=== PATIENT | female | born 1965 | race Caucasian/White ===

== ENCOUNTER 2017-11-26 04:14 | Emergency (ER) | payer MEDICAID ==
[2017-11-26 04:53] LABS: APPEARANCE CLEAR (CLEAR); BACTERIA FEW /hpf (NONE SEEN); BILIRUBIN NEGATIVE (NEGATIVE); COLOR YELLOW (YELLOW); EPITHELIAL CELLS 0-5 /hpf (0-5); GLUCOSE NEGATIVE (NEGATIVE); KETONE NEGATIVE (NEGATIVE); NITRITE NEGATIVE (NEGATIVE); PROTEIN TRACE mg/dL (NEGATIVE); UROBILINOGEN NORMAL (NORMAL)
[2017-11-26 05:04] LABS: BASOPHILS 0.1 % (0-2); EOSINOPHILS 1.5 % (0-7); HEMATOCRIT 32.2 % (36.0-48.0); HEMOGLOBIN 10.7 g/dL (12-16); IMMATURE GRANULOCYTES 0.3 % (0-5); LYMPHOCYTES 18.3 % (15-50); MCH 29.8 pg (26.0-34.0); MCHC 33.2 g/dL (31.0-37.0); MCV 89.7 fL (80.0-100.0); MEAN PLATELET VOLUME 8.7 fL (7.4-10.4); MONOCYTES 7.3 % (2-11); NEUTROPHILS 72.5 % (40-80); PLATELET COUNT 484 10x3/uL (130-400); RBC 3.59 10x6/uL (4.00-5.40); RDW 13.3 % (11.5-14.5); WBC 9.4 10x3/uL (4.8-10.8)
[2017-11-26 05:35] LABS: ALBUMIN 2.6 g/dL (3.4-5.0); ANION GAP 14.8 mmol/L (8-16); BILIRUBIN - TOTAL 0.1 mg/dL (0.2-1.3); CALCIUM 9.1 mg/dL (8.5-10.1); CARBON DIOXIDE 25.5 mmol/L (21.0-32.0); CREATININE - SERUM 0.9 mg/dL (0.6-1.3); POTASSIUM - SERUM 4.3 mmol/L (3.5-5.1)
== END 2017-11-26 06:15 | disposition home or self-care (01) ==
LOC: D.ER 04:14
PROVIDERS: Emergency Medicine
DX: R10.9 Unspecified abdominal pain (principal); F17.200 Nicotine dependence, unspecified, uncomplicated

== ENCOUNTER 2018-06-19 11:34 | Emergency (ER) | payer MEDICAID ==
[~2018-06-19] VITALS: Ht 162.6 cm; Wt 72.7 kg
[2018-06-19 11:48] VITALS: Ht 162.6 cm; Wt 72.7 kg
[2018-06-19] MEDS ORDERED: FORTAMET500 MG/BOT PO (11:51)
[2018-06-19 12:36] LABS: BASOPHILS 0.2 % (0-2); EOSINOPHILS 1.1 % (0-7); HEMOGLOBIN 15.9 g/dL (12-16); IMMATURE GRANULOCYTES 0.2 % (0-5); LYMPHOCYTES 26.1 % (15-50); MCH 30.4 pg (26.0-34.0); MCHC 33.8 g/dL (31.0-37.0); MCV 89.9 fL (80.0-100.0); MEAN PLATELET VOLUME 9.8 fL (7.4-10.4); MONOCYTES 6.8 % (2-11); NEUTROPHILS 65.6 % (40-80); RBC 5.23 10x6/uL (4.00-5.40); RDW 14.2 % (11.5-14.5); WBC 6.2 10x3/uL (4.8-10.8)
[2018-06-19 12:39] LABS: ALBUMIN 3.4 g/dL (3.4-5.0); ANION GAP 14.5 mmol/L (8-16); BILIRUBIN - TOTAL 0.33 mg/dL (0.2-1.3); CALCIUM 8.8 mg/dL (8.5-10.1); CARBON DIOXIDE 24.9 mmol/L (21.0-32.0); POTASSIUM - SERUM 4.4 mmol/L (3.5-5.1); PROTEIN - SERUM 7.8 g/dL (6.4-8.2)
[2018-06-19 12:42] LABS: PLATELET COUNT 272 10x3/uL (130-400)
[2018-06-19 12:56] LABS: APPEARANCE CLEAR (CLEAR); BILIRUBIN NEGATIVE (NEGATIVE); COLOR YELLOW (YELLOW); GLUCOSE 500 mg/dL (NEGATIVE); KETONE NEGATIVE (NEGATIVE); NITRITE NEGATIVE (NEGATIVE); PROTEIN TRACE mg/dL (NEGATIVE); SPECIFIC GRAVITY 1.025 (1.005-1.020); UROBILINOGEN NORMAL (NORMAL)
[2018-06-19 12:57] LABS: BACTERIA MODERATE /hpf (NONE SEEN); MUCUS >1+ /lpf (NONE SEEN); RED CELLS - URINE 0-5 /hpf (0-5); WHITE CELLS - URINE 0-5 /hpf (0-5)
[2018-06-19 14:41] VITALS: BP 137/86
== END 2018-06-19 14:35 | disposition home or self-care (01) ==
LOC: D.ER 11:34
PROVIDERS: Family Medicine
DX: M54.5 Low back pain (principal); E11.9 Type 2 diabetes mellitus without complications; J44.9 Chronic obstructive pulmonary disease, unspecified; F17.200 Nicotine dependence, unspecified, uncomplicated

== ENCOUNTER 2019-10-18 11:04 | Emergency (ER) | payer MEDICAID ==
[~2019-10-18] VITALS: Ht 162.6 cm; Wt 72.7 kg
[~2019-10-18 11:04] MED LIST: FORTAMET500 MG/BOT PO
[2019-10-18 11:06] VITALS: Ht 162.6 cm; Wt 72.7 kg
[2019-10-18] MEDS ORDERED: CYCLOBENZAPRINE5 MG PO (11:52)
[2019-10-18] MEDS ORDERED: DICLOFENAC SODI50 MG PO (11:52)
[2019-10-18 12:03] VITALS: BP 137/95
== END 2019-10-18 12:04 | disposition home or self-care (01) ==
LOC: D.ER 11:04
DX: M54.2 Cervicalgia (principal); J44.9 Chronic obstructive pulmonary disease, unspecified; Z72.0 Tobacco use; E11.9 Type 2 diabetes mellitus without complications; Z79.84 Long term (current) use of oral hypoglycemic drugs

== ENCOUNTER 2019-11-02 11:19 | Emergency (ER) | payer MEDICAID ==
[~2019-11-02] VITALS: Ht 162.6 cm; Wt 72.7 kg
[~2019-11-02 11:19] MED LIST changes: +CYCLOBENZAPRINE5 MG PO; +DICLOFENAC SODI50 MG PO
[2019-11-02 11:21] VITALS: Ht 162.6 cm; Wt 72.7 kg
[2019-11-02] MEDS ORDERED: VIBRAMYCIN 100100 MG PO (12:38)
[2019-11-02] MEDS ORDERED: TYLENOL W/CODEI1 TAB PO (12:38)
[2019-11-02] MEDS ORDERED: VOLTAREN75 MG PO (12:38)
[2019-11-02 12:49] VITALS: BP 148/86
== END 2019-11-02 12:50 | disposition home or self-care (01) ==
LOC: D.ER 11:19
DX: L02.212 Cutaneous abscess of back [any part, except buttock and flank] (principal); E11.9 Type 2 diabetes mellitus without complications; Z79.84 Long term (current) use of oral hypoglycemic drugs; J44.9 Chronic obstructive pulmonary disease, unspecified; Z72.0 Tobacco use

== ENCOUNTER 2019-11-24 13:31 | Emergency (ER) | payer MEDICAID ==
[~2019-11-24] VITALS: Ht 162.6 cm; Wt 72.7 kg
[~2019-11-24 13:31] MED LIST changes: +TYLENOL W/CODEI1 TAB PO; +VIBRAMYCIN 100100 MG PO; +VOLTAREN75 MG PO
[2019-11-24 14:07] VITALS: Ht 162.6 cm; Wt 72.7 kg
[2019-11-24] MEDS ORDERED: ALBUTEROL SULF8.5 GM INH (14:08)
[2019-11-24 14:42] LABS: BASOPHILS 0.2 % (0-2); EOSINOPHILS 2.5 % (0-7); HEMATOCRIT 45.4 % (36.0-48.0); HEMOGLOBIN 15.7 g/dL (12-16); IMMATURE GRANULOCYTES 0.3 % (0-5); LYMPHOCYTES 26.8 % (15-50); MCH 30.3 pg (26.0-34.0); MCHC 34.6 g/dL (31.0-37.0); MCV 87.5 fL (80.0-100.0); MONOCYTES 7.6 % (2-11); NEUTROPHILS 62.6 % (40-80); PLATELET COUNT 307 10x3/uL (130-400); RBC 5.19 10x6/uL (4.00-5.40); RDW 13.8 % (11.5-14.5); WBC 6.5 10x3/uL (4.8-10.8)
[2019-11-24 14:58] LABS: APTT 28.9 SECONDS (22.8-39.4); CALC OSMOLALITY 279 mosm/kg (275-300); CALCIUM 9.3 mg/dL (8.5-10.1); CARBON DIOXIDE 26.3 mmol/L (21.0-32.0); CHLORIDE - SERUM 102 mmol/L (98-107); CREATININE - SERUM 0.8 mg/dL (0.6-1.3); INR 0.86 (0.85-1.17); POTASSIUM - SERUM 3.8 mmol/L (3.5-5.1); PROTIME 11.7 SECONDS (11.6-15.0); SODIUM 138 mmol/L (136-145); UREA NITROGEN 13 mg/dL (7-18); eGFR NON AFRICAN AMERICAN 79 mL/min (90-120)
[2019-11-24 15:03] LABS: GLUCOSE 171 mg/dL (74-106)
[2019-11-24 15:14] LABS: ALBUMIN 3.7 g/dL (3.4-5.0); ALKALINE PHOSPHATASE 96 U/L (30-120); ALT (SGPT) 34 U/L (10-68); BILIRUBIN - TOTAL 0.23 mg/dL (0.2-1.3); CKMB 1.1 U/L (0.0-3.6); CREATINE KINASE 50 UL (21-215); PRO BNP 49 pg/mL (0-125); PROTEIN - SERUM 7.9 g/dL (6.4-8.2)
[2019-11-24 15:15] LABS: TROPONIN-I < 0.017 ng/mL (0.000-0.060)
[2019-11-24 16:01] VITALS: BP 126/71
== END 2019-11-24 16:01 | disposition home or self-care (01) ==
LOC: D.ER 13:31
PROVIDERS: Family Medicine
DX: R06.4 Hyperventilation (principal); J44.9 Chronic obstructive pulmonary disease, unspecified; E11.9 Type 2 diabetes mellitus without complications; Z72.0 Tobacco use; Z79.84 Long term (current) use of oral hypoglycemic drugs

== ENCOUNTER 2020-02-09 08:07 | Emergency (ER) | payer MEDICAID ==
[~2020-02-09] VITALS: Ht 162.6 cm; Wt 73.6 kg
[~2020-02-09 08:07] MED LIST changes: +ALBUTEROL SULF8.5 GM INH
[2020-02-09 08:10] VITALS: Ht 162.6 cm; Wt 73.6 kg
[2020-02-09 08:59] LABS: BACTERIA FEW /hpf (NEGATIVE); BILIRUBIN NEGATIVE (NEGATIVE); EPITHELIAL CELLS OCC /hpf (0-5); GLUCOSE NEGATIVE (NEGATIVE); KETONE NEGATIVE (NEGATIVE); NITRITE NEGATIVE (NEGATIVE); RED CELLS - URINE OCC /hpf (0-5); UROBILINOGEN NORMAL (NORMAL); WHITE CELLS - URINE RARE /hpf (NEGATIVE)
[2020-02-09 09:13] LABS: ANION GAP 11.5 mmol/L (8-16); CALCIUM 8.7 mg/dL (8.5-10.1); CARBON DIOXIDE 27.4 mmol/L (21.0-32.0); CREATININE - SERUM 0.9 mg/dL (0.6-1.3); POTASSIUM - SERUM 4.9 mmol/L (3.5-5.1)
[2020-02-09 09:16] LABS: ALBUMIN 3.3 g/dL (3.4-5.0); BILIRUBIN - TOTAL 0.39 mg/dL (0.2-1.3); PROTEIN - SERUM 7.4 g/dL (6.4-8.2)
[2020-02-09 10:00] VITALS: BP 121/77
[2020-02-09 10:03] LABS: BASOPHILS 0.1 % (0-2); EOSINOPHILS 1.4 % (0-7); HEMATOCRIT 47.1 % (36.0-48.0); IMMATURE GRANULOCYTES 0.2 % (0-5); LYMPHOCYTES 15.7 % (15-50); MCH 29.5 pg (26.0-34.0); MCHC 31.8 g/dL (31.0-37.0); MCV 92.5 fL (80.0-100.0); MEAN PLATELET VOLUME 9.5 fL (7.4-10.4); MONOCYTES 4.8 % (2-11); NEUTROPHILS 77.8 % (40-80); PLATELET COUNT 275 10x3/uL (130-400); RBC 5.09 10x6/uL (4.00-5.40); RDW 12.7 % (11.5-14.5); WBC 8.4 10x3/uL (4.8-10.8)
[2020-02-09] MEDS ORDERED: MACROBID100 MG PO (10:18)
== END 2020-02-09 10:52 | disposition home or self-care (01) ==
LOC: D.ER 08:07
PROVIDERS: Family Medicine
DX: N39.0 Urinary tract infection, site not specified (principal); R10.9 Unspecified abdominal pain; E11.9 Type 2 diabetes mellitus without complications; Z79.84 Long term (current) use of oral hypoglycemic drugs; J44.9 Chronic obstructive pulmonary disease, unspecified; R30.0 Dysuria

== ENCOUNTER 2020-06-12 13:50 | Emergency (ER) | payer MEDICAID ==
[~2020-06-12] VITALS: Ht 162.6 cm; Wt 72.7 kg
[~2020-06-12 13:50] MED LIST changes: +MACROBID100 MG PO
[2020-06-12 13:58] VITALS: Ht 162.6 cm; Wt 72.7 kg
[2020-06-12 14:47] LABS: BASOPHILS 0.1 % (0-2); EOSINOPHILS 0.8 % (0-7); HEMATOCRIT 46.6 % (36.0-48.0); HEMOGLOBIN 15.5 g/dL (12-16); IMMATURE GRANULOCYTES 0.2 % (0-5); LYMPHOCYTES 19.2 % (15-50); MCH 30.3 pg (26.0-34.0); MCHC 33.3 g/dL (31.0-37.0); MEAN PLATELET VOLUME 9.2 fL (7.4-10.4); MONOCYTES 3.5 % (2-11); NEUTROPHILS 76.2 % (40-80); PLATELET COUNT 285 10x3/uL (130-400); RBC 5.12 10x6/uL (4.00-5.40); RDW 12.6 % (11.5-14.5)
[2020-06-12 14:55] LABS: APTT 28.8 SECONDS (22.8-39.4); INR 0.85 (0.85-1.17); PROTIME 11.6 SECONDS (11.6-15.0)
[2020-06-12 14:56] LABS: CALC OSMOLALITY 284 mosm/kg (275-300); CARBON DIOXIDE 24.2 mmol/L (21.0-32.0); CHLORIDE - SERUM 100 mmol/L (98-107); POTASSIUM - SERUM 4.5 mmol/L (3.5-5.1); SODIUM 134 mmol/L (136-145); UREA NITROGEN 16 mg/dL (7-18); eGFR NON AFRICAN AMERICAN 61 mL/min (90-120)
[2020-06-12 14:58] LABS: GLUCOSE 390 mg/dL (74-106)
[2020-06-12 15:06] LABS: BILIRUBIN NEGATIVE (NEGATIVE); GLUCOSE 250 mg/dL (NEGATIVE); KETONE NEGATIVE (NEGATIVE); NITRITE NEGATIVE (NEGATIVE); UROBILINOGEN NORMAL (NORMAL)
[2020-06-12 15:23] LABS: ALBUMIN 3.6 g/dL (3.4-5.0); ALKALINE PHOSPHATASE 108 U/L (30-120); ALT (SGPT) 32 U/L (10-68); BILIRUBIN - TOTAL 0.21 mg/dL (0.2-1.3); CKMB 1.2 U/L (0.0-3.6); CREATINE KINASE 46 UL (21-215); PROTEIN - SERUM 7.5 g/dL (6.4-8.2)
[2020-06-12 15:26] LABS: TROPONIN-I < 0.017 ng/mL (0.000-0.060)
[2020-06-12] MEDS ORDERED: ZOFRAN ODT4 MG/UDTAB PO (18:33)
[2020-06-12] MEDS ORDERED: BENTYL 20 MG TA20 MG PO (18:33)
[2020-06-12] MEDS ORDERED: VIBRAMYCIN 100100 MG PO (18:36)
[2020-06-12 18:44] VITALS: BP 139/89
== END 2020-06-12 19:03 | disposition home or self-care (01) ==
LOC: D.ER 13:50
PROVIDERS: Family Medicine
DX: R10.9 Unspecified abdominal pain (principal); R11.0 Nausea; J06.9 Acute upper respiratory infection, unspecified; E11.65 Type 2 diabetes mellitus with hyperglycemia; Z95.5 Presence of coronary angioplasty implant and graft; J44.9 Chronic obstructive pulmonary disease, unspecified

== ENCOUNTER 2021-03-20 10:51 | Emergency (ER) | payer SELFPAY ==
[~2021-03-20] VITALS: Ht 162.6 cm; Wt 75.0 kg
[~2021-03-20 10:51] MED LIST changes: +BENTYL 20 MG TA20 MG PO; +ZOFRAN ODT4 MG/UDTAB PO
[2021-03-20 10:52] VITALS: Ht 162.6 cm; Wt 75.0 kg
[2021-03-20 11:23] LABS: CALCIUM 9.9 mg/dL (8.5-10.1); CARBON DIOXIDE 25.1 mmol/L (21.0-32.0); CHLORIDE - SERUM 99 mmol/L (98-107); CREATININE - SERUM 1.4 mg/dL (0.6-1.3); POTASSIUM - SERUM 5.2 mmol/L (3.5-5.1); SODIUM 133 mmol/L (136-145); UREA NITROGEN 26 mg/dL (7-18); eGFR NON AFRICAN AMERICAN 41 mL/min (90-120)
[2021-03-20 11:28] LABS: BASOPHILS 0.7 % (0-2); EOSINOPHILS 1.1 % (0-7); HEMATOCRIT 48.7 % (36.0-48.0); HEMOGLOBIN 16.8 g/dL (12-16); LYMPHOCYTES 23.9 % (15-50); MCH 30.5 pg (26.0-34.0); MCHC 34.5 g/dL (31.0-37.0); MCV 88.4 fL (80.0-100.0); MEAN PLATELET VOLUME 7.6 fL (7.4-10.4); MONOCYTES 3.8 % (2-11); NEUTROPHILS 70.5 % (40-80); PLATELET COUNT 337 10x3/uL (130-400); RBC 5.51 10x6/uL (4.00-5.40); WBC 8.4 10x3/uL (4.8-10.8)
[2021-03-20 11:31] LABS: APTT 29.4 SECONDS (22.8-39.4); INR 1.03 (0.85-1.17); PROTIME 12.5 SECONDS (11.6-15.0)
[2021-03-20 11:39] LABS: ALBUMIN 3.7 g/dL (3.4-5.0); ALKALINE PHOSPHATASE 121 U/L (30-120); ALT (SGPT) 34 U/L (10-68); BILIRUBIN - TOTAL 0.44 mg/dL (0.2-1.3); CKMB 1.2 U/L (0.0-3.6); CREATINE KINASE 56 UL (21-215); PRO BNP 28 pg/mL (0-125)
[2021-03-20 11:41] LABS: CALC OSMOLALITY 283 mosm/kg (275-300); GLUCOSE 329 mg/dL (74-106); TROPONIN-I < 0.017 ng/mL (0.000-0.060)
[2021-03-20] MEDS ORDERED: AUGMENTIN 875-11 TAB PO (12:48)
[2021-03-20] MEDS ORDERED: ALBUTEROL SULF8.5 GM INH (12:48)
[2021-03-20] MEDS ORDERED: MUCINEX600 MG PO (12:48)
[2021-03-20 14:01] LABS: BILIRUBIN NEGATIVE (NEGATIVE); KETONE NEGATIVE (NEGATIVE); NITRITE NEGATIVE (NEGATIVE); UROBILINOGEN NORMAL mg/dL (< 2)
[2021-03-20 14:02] LABS: BACTERIA RARE HPF (NONE SEEN); SQUAMOUS EPITHELIAL 0-5 HPF (0-4); WHITE CELLS - URINE 0-5 HPF (0-4)
[2021-03-20 15:00] VITALS: BP 164/78
== END 2021-03-20 15:39 | disposition home or self-care (01) ==
LOC: D.ER 10:51
PROVIDERS: Family Medicine
DX: J44.1 Chronic obstructive pulmonary disease with (acute) exacerbation (principal); E86.0 Dehydration; E11.65 Type 2 diabetes mellitus with hyperglycemia; E87.5 Hyperkalemia; Z72.0 Tobacco use; Z79.84 Long term (current) use of oral hypoglycemic drugs